=== PATIENT | female | born 2000 | race Caucasian/White ===

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

== ENCOUNTER 2019-03-26 03:45 | Day surgery (SDC) | payer OTHER ==
[2019-03-26] MEDS ORDERED: Bicitra 30 ML UDCUP ONE (04:31)
[2019-03-26] MEDS ORDERED: hydrALAZINE 20 MG/ML VIAL SLOW IVP PRN ×2 (04:39)
[2019-03-26] MEDS ORDERED: Bicitra 30 ML UDCUP PO SCH (04:45)
[2019-03-26] MEDS ORDERED: Famotidine 20 MG TAB PO SCH (04:45)
--- NOTE | 2019-03-26 05:36 | PRG ---
DATE OF SERVICE: PRIMARY AREA COUNSELOR: Renetta Kraft MD CHIEF COMPLAINT: Abdominal pain, chest pain. HISTORY OF PRESENT ILLNESS: The patient is a 18-year-old female with an intrauterine at 27 weeks and 4 days, presenting after waking up at 2 in the morning to go to the bathroom and noticing that she was having bad heartburn that progressively became worse at the top of her stomach. This heartburn continued to worsen to the point that she felt like she needed to come to the emergency room. At one point, she felt like the pain was best described as heaviness in her chest. At the time of evaluation, the patient says the pain has gotten much better. She does report eating cheese cake last night about 11 o'clock. She also says that she gets frequent heartburn at night and is not relieved by Tums. She reports heartburn during the day at times. She denies any complications has been present with the . Chest pain per HPI. She denies nausea, vomiting, diarrhea, constipation, hip problems, knee problems, muscle weakness, vaginal bleeding, leakage of fluid, urinary urgency or frequency. PAST MEDICAL HISTORY: Significant for hypothyroidism diagnosed early in this . PAST SURGICAL HISTORY: [place] tooth removal. SOCIAL HISTORY: Denies drug, alcohol, or tobacco use. ALLERGIES: NO KNOWN DRUG ALLERGIES. MEDICATIONS: vitamins. OB LABS: Unavailable at time of dictation. REVIEW OF SYSTEMS: Per HPI. PHYSICAL EXAMINATION: VITAL SIGNS: Blood pressure is 107/73, heart rate 99, respiratory rate 20, saturating 100% on room air, and temperature 97.7. GENERAL: She appears to be in no acute distress. She is alert, oriented, cooperative, and pleasant to interact with. HEAD: Normocephalic and atraumatic. LUNGS: Clear to auscultation bilaterally. HEENT: The patient has nystagmus that she reports is part of a medical condition that she has that she cannot name, but it has been evaluated. ABDOMEN: Gravid, soft, nontender. EXTREMITIES: Nontender nonedematous. CHEST: Nontender to palpation along the parasternal region. heart tracing shows a baseline in the 140s with moderate long-term variability, positive 10 x 10 accelerations. No contractions on the monitor. The patient was given Bicitra, which immediately within a few minutes of taking it has reduced her pain significantly. ASSESSMENT AND PLAN: The patient is a 18-year-old female with an intrauterine at 27 weeks gestation with bad heartburn, patient unrelieved by Tums in the past. Bicitra seems to help neutralize what is currently happening, we are also giving her 20 mg of Pepcid and instructions to purchase ranitidine over the counter 75 mg to be taken at night. She has been counseled not to eat late at night, but to make her dinner her last meal, to take the Zantac about 30 minutes before she eats and to see if this improves her symptoms at night. She can take the Zantac up to 2 times a day if needed before her meals. She has an appointment with Dr. Kraft that she can follow up with and fetus is reassuring by heart tracing. Job ID: [id number] MTDD
== END 2019-03-26 05:04 | disposition home or self-care (01) ==
LOC: L&D/OP 03:45
PROVIDERS: ATTEND Student in an Organized Health Care Education/Training Program
DX: O99.89 Other specified diseases and conditions complicating pregnancy, childbirth and the puerperium (principal); R12 Heartburn; R10.9 Unspecified abdominal pain; O99.282 Endocrine, nutritional and metabolic diseases complicating pregnancy, second trimester; E03.9 Hypothyroidism, unspecified; Z3A.27 27 weeks gestation of pregnancy; Z88.1 Allergy status to other antibiotic agents
CPT/HCPCS: 99283

== ENCOUNTER 2019-06-17 13:54 | Inpatient (IN) | payer OTHER ==
[2019-06-17] MEDS ORDERED: Bupivacaine/Epinephrine 0.25% 30 ML VIAL ONE (14:26)
[2019-06-17] MEDS ORDERED: EPHEDRINE 25 MG/5 ML SYRINGE ONE (14:26)
[2019-06-17] MEDS ORDERED: NS / Oxytocin 40 units/1000ml 1,000 ML IV PRN (21:39)
[2019-06-17] MEDS ORDERED: Butorphanol Tartrate 1 MG/ML VIAL SLOW IVP PRN (21:39)
[2019-06-17] MEDS ORDERED: Carboprost 250 MCG/ML AMP IM PRN (21:39)
[2019-06-17] MEDS ORDERED: HYDROcodone/Acetaminophen 5/325 mg Tablet PO PRN (21:39)
[2019-06-17] MEDS ORDERED: Lidocaine 1% (PF) 30 ML VIAL SC PRN (21:39)
[2019-06-17] MEDS ORDERED: hydrALAZINE 20 MG/ML VIAL SLOW IVP PRN (21:39)
[2019-06-17] MEDS ORDERED: Zolpidem Tartrate 5 MG TAB PO PRN (21:39)
[2019-06-17] MEDS ORDERED: Ibuprofen 800 MG TAB PO PRN (21:39)
[2019-06-17] MEDS ORDERED: Diphenoxylate HCl/Atropine Tablet PO PRN (21:39)
[2019-06-17] MEDS ORDERED: Ondansetron PF 4 MG/2 ML Vial IVP PRN (21:39)
[2019-06-17] MEDS ORDERED: Misoprostol 200 MCG TAB PR PRN (21:39)
[2019-06-17] MEDS ORDERED: Acetaminophen 500 MG TAB PO PRN (21:39)
[2019-06-17] MEDS ORDERED: Methylergonovine 0.2 MG/ML VIAL IM PRN (21:39)
[2019-06-17] MEDS ORDERED: Promethazine HCl 25 MG/ML VIAL IM PRN (21:39)
[2019-06-17] MEDS ORDERED: NS w/ Oxytocin 10 units 500 ML IV SCH (22:00)
[2019-06-17 22:13] VITALS: BMI 28.6
[2019-06-17 22:54] LABS: Hemoglobin 12.8 g/dL (12.0-16.0); Mean Corpuscular HGB CONC 34.8 g/dL (32.0-36.0); Mean Corpuscular Hemoglobin 32.8 pg (25.0-35.0); Mean Corpuscular Volume 94.1 fL (78.0-98.0); Mean Platelet Volume 8.2 fL (7.4-10.4); Platelet Count 207 thou/uL (130-400); RBC Distribution Width 12.6 % (11.5-14.5)
[2019-06-17 23:22] LABS: HBSAg Index 0.31 S/CO (0-0.99); Hep B Surf Ag Non-Reactive S/CO (NonReactive)
[2019-06-18] MEDS: Misoprostol 100 MCG TAB VAG SCH ×4 (01:10→18:53)
[2019-06-18 05:16] LABS: Syphilis Antibody Nonreactive (Nonreactive); Syphilis Antibody Index 0.03 S/CO (<1.00 Non-Reactive)
[2019-06-18] MEDS: Lactated Ringer's 1,000 ML IV SCH ×4 (07:16→11:53)
--- NOTE | 2019-06-18 08:17 | PDOC.LDHP ---
Labor and Delivery H&P Chief complaint: scheduled induction HPI: 18yo at 39w4d by LMP here for elective IOL. s/p cytotec x 2 overnight. Current gestational age (weeks): 39 Dating criteria: last menstrual period Allergies/Adverse Reactions: Allergies Allergy/AdvReac Type Severity Reaction Status Date / Time clindamycin Allergy Unknown Verified 06/17/19 22:00
[2019-06-18] MEDS ORDERED: Fentanyl 4 mcg/Bup 0.1% Cadd 100 ML ONE (09:03)
[2019-06-18] MEDS ORDERED: Naloxone HCl 0.4 mg/ml Vial IVP PRN ×2 (10:19)
[2019-06-18] MEDS ORDERED: Lactated Ringer's 500 ML IV PRN (10:19)
[2019-06-18] MEDS ORDERED: Acetaminophen 325 MG TAB PO PRN (10:19)
[2019-06-18] MEDS ORDERED: diphenhydrAMINE 50 MG/ML VIAL IVP PRN (10:19)
[2019-06-18] MEDS ORDERED: EPHEDRINE 25 MG/5 ML SYRINGE SLOW IVP PRN (10:19)
[2019-06-18] MEDS ORDERED: Ondansetron PF 4 MG/2 ML Vial IVP PRN ×2 (10:19→19:32)
[2019-06-18] MEDS ORDERED: Promethazine HCl 25 MG/ML VIAL IM PRN ×2 (10:19→19:32)
[2019-06-18] MEDS ORDERED: Communication Order-Pharmacy FS SCH (10:30)
[2019-06-18] MEDS ORDERED: Fentanyl 4 mcg/Bupivacaine 0.1% Cassette 100 ML EPIDURAL SCH (10:30)
[2019-06-18] MEDS ORDERED: Hydrocerin (Eucerin) Cream 120 gm Jar TOP PRN (13:56)
[2019-06-18] MEDS ORDERED: NS / Oxytocin 40 units/1000ml 1,000 ML ONE ×2 (17:25→20:01)
[2019-06-18] MEDS ORDERED: Lidocaine 1% (PF) 30 ML VIAL ONE (17:25)
[2019-06-18] MEDS ORDERED: Methylergonovine 0.2 MG/ML VIAL ONE ×2 (17:46→17:57)
[2019-06-18] MEDS ORDERED: Methylergonovine 0.2 MG TAB ONE ×2 (17:56→23:06)
[2019-06-18] MEDS ORDERED: Tranexamic Acid 1,000 MG/10 ML VIAL ONE (18:01)
[2019-06-18] MEDS ORDERED: Carboprost 250 MCG/ML AMP ONE ×2 (18:08→18:18)
[2019-06-18 18:37] LABS: #Lymphocytes 1.1 thou/uL (1.20-3.40); #Monocytes 1.3 thou/uL (0.11-0.59); #Neutrophils 12.1 thou/uL (1.40-6.50); %Basophils 0.1 % (0.0-1.0); %Eosinophils 0.2 % (0.0-10.0); %Lymphocytes 7.4 % (28.0-48.0); %Neutrophils 83.4 % (31.0-61.0); Hemoglobin 10.4 g/dL (12.0-16.0); Mean Corpuscular Hemoglobin 33.5 pg (25.0-35.0); Mean Corpuscular Volume 95.6 fL (78.0-98.0); Mean Platelet Volume 8.3 fL (7.4-10.4); Platelet Count 144 thou/uL (130-400); RBC Distribution Width 12.4 % (11.5-14.5); White Blood Cell (WBC) Count 14.5 thou/uL (4.8-10.8)
[2019-06-18] MEDS ORDERED: Carboprost 250 MCG/ML AMP IM SCH (18:45)
[2019-06-18] MEDS ORDERED: Diphenoxylate HCl/Atropine Tablet PO SCH (18:45)
[2019-06-18 18:46] LABS: Fibrinogen 431 mg/dL (253-463)
--- NOTE | 2019-06-18 18:46 | PDOC.OPDEL ---
OB Operative/Delivery Note Delivery Dr/Surgeon: Swapnil Assist: n/a Pre-Delivery Diagnosis: elective induction Procedure/Post Delivery Dx: spontaneous vaginal delivery Weeks gestation: 39 Anesthesia: epidural - Findings A Sex: female - 1 min: 9 - 5 min: 9 - Additional Findings/Plan Placenta delivered: spontaneous Repaired Obstetrical Laceration: 2nd degree Estimated blood loss: [id number] Compilations/Other Findings: Pt started having gushing of blood about 5min after delivery of placenta that improved with bimanual massage and removing clots out of uterus, no retained POC , pitocin was bolusing in. Gushing reoccured in a few min and methergine cytotec and hemabate was called for. Straight cath performed of bladder. Continued bimanual massage was performed more clots were removed. All drugs were given within 10min and slow trickle with intermittent gushing of blood therefore second IV was called for and more drugs as well as hemorrhage cart. Samme was keeping tally of everything and TXA was given. All drugs were then administered according to hemorrhage protocol. 2U PRBC was called for, EBL 1500cc, stat labs ordered. Bakri balloon was placed, confirmed placement with ultrasound guidance, Brading assist. 420cc were placed in balloon. Vaginal packing placed in vagina and david catheter was placed in bladder. Bleeding stable from bakri balloon. Pulse went to 150s pt was dizzy. 1U PRBC started. IVF bolusing. Slightly hypertensive from 2 doses of methergine. Pulse decreased to 110s, pt feeling better. Bleeding from bakri stable 1.5hr following placement. Pt to remain in L&D for strict I&O. Will repeat labs at midnight. Pt updated on event. All questions answered. Post delivery plan: recovery in LICU
[2019-06-18 18:47] LABS: PTT 28.5 SEC (22.9-36.1); Prothrombin Time 13.5 SEC (12.0-14.7)
[2019-06-18 18:48] LABS: D-Dimer Test 2.13 *mcg/mL (0.27-0.43)
[2019-06-18 19:14] LABS: FSP-Qualitative ABNORMAL (Normal); FSP-Semiquantitative >=5 & <20 mcg/mL (Less than 5)
[2019-06-18 19:15] LABS: Platelet Count 144 thou/uL (130-400)
[2019-06-18] MEDS ORDERED: Lanolin Ointment 7 GM TUBE TOP PRN (19:32)
[2019-06-18] MEDS ORDERED: Milk Of Magnesia 30 ML UDCUP PO PRN (19:32)
[2019-06-18] MEDS ORDERED: Preparation H Ointment 28 GM TUBE PR PRN (19:32)
[2019-06-18] MEDS ORDERED: diphenhydrAMINE 25 MG CAP PO PRN (19:32)
[2019-06-18] MEDS ORDERED: HYDROcodone/Acetaminophen 5/325 mg Tablet PO PRN (19:32)
[2019-06-18] MEDS ORDERED: NS / Oxytocin 40 units/1000ml 1,000 ML IV SCH (19:32)
[2019-06-18] MEDS ORDERED: Bisacodyl 10 MG SUPP PR PRN (19:32)
[2019-06-18] MEDS ORDERED: hydrALAZINE 20 MG/ML VIAL SLOW IVP PRN (19:32)
[2019-06-18] MEDS ORDERED: Benzocaine-Menthol 82.5 ML CAN TOP PRN (19:32)
[2019-06-18] MEDS ORDERED: Adacel (T-DAP) 0.5 ML SYRINGE IM ONE (19:32)
[2019-06-18] MEDS ORDERED: Labetalol HCl 100 MG/20 ML VIAL ONE (19:40)
[2019-06-18] MEDS ORDERED: Labetalol HCl 100 MG/20 ML VIAL SLOW IVP PRN (20:00)
[2019-06-18] MEDS: HYDROcodone/Acetaminophen 5/325 mg Tablet PO PRN (21:29)
[2019-06-19 00:04] LABS: Hemoglobin 12.7 g/dL (12.0-16.0)
[2019-06-19] MEDS: Methylergonovine 0.2 MG/ML VIAL IM SCH ×2 (03:23→22:38)
[2019-06-19] MEDS: Docusate Calcium (SURFAK) 240 MG CAP PO SCH ×3 (03:24→22:56)
[2019-06-19] MEDS: Ibuprofen 800 MG TAB PO SCH ×4 (03:24→22:56)
--- NOTE | 2019-06-19 05:18 | PDOC.PP ---
Post Progress Note Post Day #: 1 Subjective: Patient doing well this AM. Bleeding overnight has been only [address]. Good urine output with >100 mL/hr. Patient did have one temp of 100.7 F. Repeat was 100.0 F. Patient did have significant vaginal manipulation 2/2 uterine atony and subsequent PPH. She required methergine, hemabate, TXA, and placement of bhupinder balloon. She denies significant abdominal pain. PO intake tolerated: yes Flatus: yes Ambulation: yes Vital Signs (12 hours) Pulse 06/19/19 03:24 117 H Weight Weight 75.75 kg - Physical Examination General: NAD Cardiovascular: RRR Respiratory: non-labored breathing Abdominal: + bowel sounds, lochia (150 mL overnight), no distention, appropriately TTP Fundus firm & at: at umbilicus Skin: no rash Neurological: no gross focal deficits Psychiatric: A&Ox3 Result Diagrams: 06/19/19 07:45 Additional Labs: Post Labs Blood Type A POSITIVE 06/17/19 22:55 Hep Bs Antigen Non-Reactive S/CO (NonReactive) 06/17/19 21:56 (1) Term delivered Code(s): O80 - ENCOUNTER FOR FULL-TERM UNCOMPLICATED DELIVERY Status: Acute (2) hemorrhage Code(s): O72.1 - OTHER IMMEDIATE HEMORRHAGE Status: Acute - Assessment/Plan Routine PP care - PP day #1 s/p - Meeting PP milestones - Rh positive, rubella immune - Maternal temp to 100.7F with repeat 100.0F; patient at risk for endometritis given vaginal manipulation and bhupinder balloon placement. Will continue to monitor. Abdomen appropriately TTP. Low threshold for initiation of antibiotics. PPH - QBL >1500 mL - Blood loss overnight 150 mL - Urine output adequate >100 mL/hr - H/H 12.8/36.7 --> 10.4/29.6 --> 12.7/36.0 - s/p 2 units pRBC's - VSS - Bhupinder balloon in place. Remove 80 cc q2h starting at 6:00 AM. 420 mL total placed in bhupinder balloon. Dispo: Patient doing well. Anticipate discharge in next 24-48 hours. Addendum - Attending - Attending Attestation Date/Time: 06/19/19 0819 I personally evaluated the patient and discussed the management with Dr. Odell. I agree with the History, Examination, Assessment and Plan documented above.
[2019-06-19] MEDS: Misoprostol 100 MCG TAB VAG SCH (05:32)
[2019-06-19 07:58] LABS: Hemoglobin 10.9 g/dL (12.0-16.0); Mean Corpuscular HGB CONC 34.8 g/dL (32.0-36.0); Mean Corpuscular Hemoglobin 32.5 pg (25.0-35.0); Mean Corpuscular Volume 93.6 fL (78.0-98.0); Mean Platelet Volume 7.5 fL (7.4-10.4); Platelet Count 126 thou/uL (130-400); RBC Distribution Width 12.5 % (11.5-14.5); Red Blood Cell (RBC) Count 3.34 mill/uL (4.00-5.20); White Blood Cell (WBC) Count 19.3 thou/uL (4.8-10.8)
[2019-06-19] MEDS: Ferrous Sulfate 325 MG TAB PO SCH ×2 (10:54→22:39)
[2019-06-19] MEDS: Prenatal Vitamin 1 TAB PO SCH (10:55)
[2019-06-19] MEDS ORDERED: Methylergonovine 0.2 MG TAB ONE (10:57)
[2019-06-19] MEDS: HYDROcodone/Acetaminophen 5/325 mg Tablet PO PRN (11:46)
[2019-06-19] MEDS ORDERED: Methylergonovine 0.2 MG TAB PO SCH (23:00)
--- NOTE | 2019-06-20 02:33 | PDOC.PP ---
Post Progress Note Post Day #: PPD2 Subjective: Resting, no complaints. PO intake tolerated: yes Flatus: yes Ambulation: yes Vital Signs (12 hours) Temp Pulse Resp BP Pulse Ox 06/19/19 23:00 98.9 F 103 H 16 118/73 06/19/19 21:35 98.6 F 109 H 16 145/80 H 99 Weight Weight 75.75 kg - Physical Examination General: NAD Respiratory: non-labored breathing Abdominal: no distention Neurological: no gross focal deficits Psychiatric: normal affect Result Diagrams: 06/19/19 07:45 Additional Labs: Post Labs Blood Type A POSITIVE 06/17/19 22:55 Hep Bs Antigen Non-Reactive S/CO (NonReactive) 06/17/19 21:56 - Assessment/Plan Doing well s/p with PPH. Baloon removed yesterday, lochia light to moderate since removal. Repeat H/H this AM. Anticipate DC 06/21/2019
[2019-06-20] MEDS: Ibuprofen 800 MG TAB PO SCH ×3 (05:46→20:48)
[2019-06-20 06:03] LABS: Hemoglobin 10.5 g/dL (12.0-16.0); Mean Corpuscular HGB CONC 35.9 g/dL (32.0-36.0); Mean Corpuscular Hemoglobin 33.9 pg (25.0-35.0); Mean Corpuscular Volume 94.5 fL (78.0-98.0); Mean Platelet Volume 8.1 fL (7.4-10.4); Platelet Count 151 thou/uL (130-400); RBC Distribution Width 12.8 % (11.5-14.5); White Blood Cell (WBC) Count 15.9 thou/uL (4.8-10.8)
[2019-06-20 06:59] LABS: Band 9 % (5-11); Eosinophils 1 % (0-10); Lymphocytes 8 % (28-48); MDiff Complete? YES; Monocytes 8 % (0-4); Myelocyte 1 % (0-0); Neutrophil 73 % (31-61)
[2019-06-20] MEDS: Prenatal Vitamin 1 TAB PO SCH (08:12)
[2019-06-20] MEDS: Docusate Calcium (SURFAK) 240 MG CAP PO SCH ×2 (08:12→20:48)
[2019-06-20] MEDS: Ferrous Sulfate 325 MG TAB PO SCH ×2 (08:13→13:39)
[2019-06-21] MEDS: Ibuprofen 800 MG TAB PO SCH ×2 (05:46→13:34)
--- NOTE | 2019-06-21 06:45 | PDOC.EVN ---
Event Note - Event Note Event Note: H/H reviewed yesterday and was stable. tachycardia has resolved as the day progressed. Given the post hemorrhage and use of bakri balloon pt has stayed given increased risk for other complications such as infection. Dr Kraft resuming care.
[2019-06-21 08:26] VITALS: BP 119/72; TEMP 98.2
[2019-06-21] MEDS: Ferrous Sulfate 325 MG TAB PO SCH (08:42)
[2019-06-21] MEDS: Docusate Calcium (SURFAK) 240 MG CAP PO SCH (08:42)
[2019-06-21] MEDS: Prenatal Vitamin 1 TAB PO SCH (08:42)
--- NOTE | 2019-06-21 15:39 | PDOC.PP ---
Post Progress Note Post Day #: 3 PO intake tolerated: yes Flatus: yes Ambulation: yes Vital Signs (12 hours) Temp Pulse Resp BP Pulse Ox 06/21/19 08:25 98.2 F 90 20 119/72 97 Weight Weight 167 lb - Physical Examination General: NAD Respiratory: non-labored breathing Abdominal: no distention, appropriately TTP Result Diagrams: 06/20/19 05:43 Additional Labs: Post Labs Blood Type A POSITIVE 06/17/19 22:55 Hep Bs Antigen Non-Reactive S/CO (NonReactive) 06/17/19 21:56
== END 2019-06-21 18:04 | disposition home or self-care (01) | DRG 806 ==
LOC: L&D 20:33 → 3SW 06-20 01:35 → EDSTATUS 07-20 13:46
PROVIDERS: ADMIT Student in an Organized Health Care Education/Training Program; ATTEND Student in an Organized Health Care Education/Training Program
PROC: 10E0XZZ Delivery of Products of Conception, External Approach (ICD-10-PCS; principal; 2019-06-18)
PROC: 0UC97ZZ Extirpation of Matter from Uterus, Via Natural or Artificial Opening (ICD-10-PCS; 2019-06-18)
PROC: 30233N1 Transfusion of Nonautologous Red Blood Cells into Peripheral Vein, Percutaneous Approach (ICD-10-PCS; 2019-06-18)
DX: O70.1 Second degree perineal laceration during delivery (principal); O72.1 Other immediate postpartum hemorrhage; Z37.0 Single live birth; Z3A.39 39 weeks gestation of pregnancy
CPT/HCPCS: 36415; 36430; 85025; 85027; 85049; 85300; 85362; 85379; 85384; 85610; 85730; 86780; 86850; 86900; 86901; 87340; J1200; J2001; J2210; J2405; J2590; J3490; P9016; Q0163